=== PATIENT | female | born 1970 | race Two or more races ===

== ENCOUNTER 2023-02-03 10:27 | Outpatient (CLI) | payer OTHER ==
[2023-02-03] MEDS ORDERED: ZANAFLEX4 M1 PO (11:51)
[2023-02-03] MEDS ORDERED: DOLOGESIC 500-1 EACH PO (11:51)
[2023-02-03 12:37] LABS: COL EPI 86 SECONDS (82-175)
== END 2023-02-03 14:58 | disposition home or self-care (01) ==
LOC: LAB 10:27 → EDBD 10:27 → LAB 14:58
PROVIDERS: ATTEND Obstetrics & Gynecology
DX: D68.8 Other specified coagulation defects (principal); B37.31 Acute candidiasis of vulva and vagina; Z88.8 Allergy status to other drugs, medicaments and biological substances

== ENCOUNTER 2023-02-10 10:12 | Day surgery (SDC) | payer OTHER ==
[2023-02-03 17:45] LABS: INR 1.02; PROTHROMBIN TIME 10.7 SECONDS (9.0-11.5)
[~2023-02-10 10:12] MED LIST: DOLOGESIC 500-1 EACH PO; ZANAFLEX4 M1 PO
== END 2023-02-10 18:45 | disposition home or self-care (01) ==
LOC: CIR.AMB 10:12 → EDBD 10:45 → CIR.AMB 10:45
PROVIDERS: ATTEND Obstetrics & Gynecology
DX: N84.0 Polyp of corpus uteri (principal); N93.8 Other specified abnormal uterine and vaginal bleeding; N92.1 Excessive and frequent menstruation with irregular cycle; Z20.822 Contact with and (suspected) exposure to COVID-19; Z88.8 Allergy status to other drugs, medicaments and biological substances

== ENCOUNTER 2024-08-29 07:05 | Outpatient (CLI) | payer OTHER ==
[~2024-08-29 07:05] MED LIST changes: +ACETAMINOPHEN-1 EAC2 PO; +AMOX-CLAV 875-1 EAC1 PO; +COLACE100 MG PO; +DICLOFENAC SODI50 MG PO; +FLONASE16 GM; +INTESTINEX680 M1 PO; +MEDROXYPRO150 MG/11; +MEGESTROL ACETA40 MG
== END 2024-08-29 07:08 | disposition home or self-care (01) ==
LOC: MRI 07:05
PROVIDERS: ATTEND Urology
DX: N31.1 Reflex neuropathic bladder, not elsewhere classified (principal); R31.1 Benign essential microscopic hematuria
CPT/HCPCS: 72197; 74183

== ENCOUNTER 2024-12-07 08:00 | Inpatient (IN) | payer OTHER ==
[~2024-12-07] VITALS: Ht 162.6 cm; Wt 74.8 kg
[2024-12-07 09:52] LABS: BASO % 0.5 % (0.1-1.2); EOS # 0.24 (0.04-0.54); EOS % 4.0 % (0.7-7.0); LYMPH # 1.91 (1.18-3.74); LYMPH % 31.9 % (19.3-53.1); MEAN PLATELET VOLUME 9.40 fl (9.4-12.4); MONO # 0.41 (0.24-0.82); MONO % 6.9 % (4.7-12.5); NEUT # 3.38 (1.56-6.13); NEUT % 56.5 % (34.0-71.1); RED CELL DISTRIBUTION WIDTH 11.5 % (11.6-14.4)
[2024-12-07 10:20] LABS: COVID-19 AG NEGATIVE (NEGATIVE)
[2024-12-07 10:23] LABS: INR 1.03
[2024-12-07 10:38] LABS: ALT/SGPT 60.0 U/L (12-78); AST/SGOT 32.0 U/L (15-37); BILIRUBIN TOTAL 0.56 mg/dL (0.3-1.2); BUN CREA RATIO 12.0 (7.0-25.0); CREATININE SERUM 1.16 mg/dL (0.55-1.02); GFR 48.5; GLOBULINA 3.3 G/DL (2.4-3.5); GLUCOSE FASTING 92.0 mg/dL (65-100); OSMOLALITY SERUM 285.0 MOSM/KG (275-295)
[2024-12-07 10:54] LABS: URINE APPEARANCE Clear; URINE BILIRRUBIN Negative (NEGATIVE); URINE BLOOD Negative; URINE COLOR Yellow; URINE GLUCOSE Negative (NEGATIVE); URINE KETONE Negative (NEGATIVE); URINE LEUKOCYTE Negative; URINE NITRATE Negative; URINE PROTEIN Negative (NEGATIVE); URINE UROBILINOGEN 0.2 E.U./dl
[2024-12-07] MEDS ORDERED: LIPITOR20 MG PO (10:57)
[2024-12-07] MEDS ORDERED: LOSARTAN POTASS50 MG PO (10:57)
[2024-12-07 10:58] VITALS: BP 150/87
[2024-12-07 11:22] LABS: URINE BACTERIA 94.6 uL (0.0-1933); URINE EPITHELIAL CELLS 2.6 uL (0.0-38.8); URINE RBC 3.8 uL (0.0-20.8); URINE WBC 6.3 uL (0.0-23.2)
[2024-12-07 11:25] LABS: URINE CAST 0.00 uL (0.0-1.40)
[2024-12-14] MEDS ORDERED: HEPARIN SODIUM,PORCINE 5,000 UNITS/ML VIAL ONE (07:25)
[2024-12-14] MEDS ORDERED: VANCOMYCIN HCL 1,000 MG VIAL IV ONE (07:45)
[2024-12-14] MEDS ORDERED: CEFAZOLIN SODIUM 1,000 MG VIAL IV ONE (09:00)
[2024-12-14] MEDS ORDERED: DEXTROSE 5 %-0.45 % SOD CHLORD 1,000 ML IV SCH (11:12)
[2024-12-14] MEDS ORDERED: DOCUSATE SODIUM 100MG CAP PO SCH (11:14)
[2024-12-14] MEDS ORDERED: ACETAMINOPHEN WITH CODEINE 1 UDTAB TABLET PO PRN (11:15)
[2024-12-14] MEDS ORDERED: MORPHINE SULFATE 2 MG/ML CARTRIDGE IV PRN (11:15)
[2024-12-14] MEDS ORDERED: ONDANSETRON HCL 2 MG/ML VIAL IV PRN (11:15)
[2024-12-14] MEDS ORDERED: MORPHINE SULFATE 4 MG/ML VIAL IV ONE ×2 (11:25→12:25)
[2024-12-14 13:30] VITALS: BP 149/79; O2SAT 97
[2024-12-14 16:28] VITALS: BP 151/79; O2SAT 95
[2024-12-14] MEDS ORDERED: SIMETHICONE 125 MG CAPSULE PO SCH (17:00)
[2024-12-14] MEDS ORDERED: CEFAZOLIN SODIUM 1,000 MG VIAL IV SCH (17:00)
[2024-12-14 19:00] VITALS: BP 144/79
[2024-12-14 22:03] VITALS: BP 118/62
[2024-12-15 00:42] VITALS: BP 134/81; O2SAT 100
[2024-12-15 07:37] LABS: BASO % 0.2 % (0.1-1.2); EOS # 0.17 (0.04-0.54); EOS % 1.9 % (0.7-7.0); LYMPH # 1.63 (1.18-3.74); LYMPH % 18.6 % (19.3-53.1); MEAN PLATELET VOLUME 9.80 fl (9.4-12.4); MONO # 0.71 (0.24-0.82); MONO % 8.1 % (4.7-12.5); NEUT # 6.22 (1.56-6.13); NEUT % 71.0 % (34.0-71.1); RED CELL DISTRIBUTION WIDTH 11.8 % (11.6-14.4)
[2024-12-15 07:48] LABS: BUN CREA RATIO 9.0 (7.0-25.0); CREATININE SERUM 0.98 mg/dL (0.55-1.02); GFR 58.92; GLUCOSE FASTING 77.0 mg/dL (65-100); OSMOLALITY SERUM 288.0 MOSM/KG (275-295)
[2024-12-15 08:38] VITALS: BP 144/82; O2SAT 97
[2024-12-15 16:00] VITALS: BP 159/80; O2SAT 100
[2024-12-15] MEDS ORDERED: LOSARTAN POTASSIUM 50 MG TABLET PO SCH (17:00)
[2024-12-16 00:48] VITALS: BP 135/79; O2SAT 96
[2024-12-16 08:00] VITALS: BP 151/84; O2SAT 98
[2024-12-16] MEDS ORDERED: ACETAMINOPHEN WITH CODEINE 1 UDTAB TABLET PO PRN (12:00)
== END 2024-12-16 12:10 | disposition home or self-care (01) | DRG 655 ==
LOC: SURH 12-14 06:00 → O/R 12-14 06:00 → SURH 12-14 07:00
PROVIDERS: ADMIT Urology; ATTEND Urology
PROC: [UNRECOGNIZED PROCEDURE] (2024-12-14)
PROC: 0TSB0ZZ Reposition Bladder, Open Approach (ICD-10-PCS; principal; 2024-12-14 07:00)
DX: N13.5 Crossing vessel and stricture of ureter without hydronephrosis (principal)